=== PATIENT | male | born 1950 | race Caucasian/White ===

== ENCOUNTER → 2017-05-14 | Outpatient (CLI) | payer MEDICARE ==
[~2017-05-14] MED LIST: AMLO5TAB2 PO; ASPI-496 PO; ATOR80TA PO; LINA290C PO; LORA2TAB PO; METO-99 PO; OMEP-110 PO; TEMA15CA PO; TRIA1TAB5 PO
== END | disposition home or self-care (01) ==
LOC: STAR 15:13
PROVIDERS: ATTEND Internal Medicine
DX: Z01.818 Encounter for other preprocedural examination (principal); R94.31 Abnormal electrocardiogram [ECG] [EKG]; K22.711 Barrett's esophagus with high grade dysplasia; K22.70 Barrett's esophagus without dysplasia; I10 Essential (primary) hypertension; E78.5 Hyperlipidemia, unspecified; F41.9 Anxiety disorder, unspecified; F32.9 Major depressive disorder, single episode, unspecified; E66.9 Obesity, unspecified; K59.00 Constipation, unspecified; R63.1 Polydipsia; D12.0 Benign neoplasm of cecum; F52.32 Male orgasmic disorder
CPT/HCPCS: 93005

== ENCOUNTER 2017-05-20 08:18 | Day surgery (SDC) | payer MEDICARE ==
[2017-05-15 07:43] VITALS: BP 173/90
[~2017-05-20] VITALS: Ht 167.6 cm; Wt 111.0 kg
[2017-05-20] MEDS ORDERED: LACTATED RINGERS 1,000 ML IV SCH (09:12)
[2017-05-20 09:15] VITALS: BP 173/90
[2017-05-20] MEDS ORDERED: LIDOCAINE 1%, 2ML SQ PRN (09:30)
[2017-05-20] MEDS ORDERED: FENTANYL PF 100 MCG/2ML ONE (10:49)
[2017-05-20] MEDS ORDERED: ACETAMINOPHEN 325 MG TABLET PO PRN (11:00)
[2017-05-20] MEDS ORDERED: ALBUTEROL SULFATE 2.5 MG/3 ML NPPB PRN (11:00)
[2017-05-20] MEDS ORDERED: FENTANYL PF 100 MCG/2ML IV PRN (11:00)
[2017-05-20] MEDS ORDERED: EPHEDRINE 50 MG/ML, 1ML IVPush PRN (11:00)
[2017-05-20] MEDS ORDERED: LABETALOL 5MG/ML, 20ML IV PRN (11:00)
[2017-05-20] MEDS ORDERED: HYDROcodone/APAP 7.5-325MG/15ML UDC PO PRN (11:00)
[2017-05-20] MEDS ORDERED: ONDANSETRON 2MG/ML, 2ML IVPush PRN (11:00)
[2017-05-20] MEDS ORDERED: METOPROLOL 1 MG/ML, 5ML IV PRN (11:00)
[2017-05-20] MEDS ORDERED: hydrALAzine 20 MG/ML, 1ML IV PRN (11:00)
[2017-05-20] MEDS ORDERED: SUCCINYLCHOLINE 20 MG/ML, 10ML ONE (11:20)
[2017-05-20] MEDS ORDERED: ROCURONIUM 10 MG/ML ONE (11:20)
[2017-05-20] MEDS ORDERED: NEOSTIGMINE 1 MG/ML, 10ML ONE (11:20)
[2017-05-20] MEDS ORDERED: PROPOFOL 10 MG/ML, 20ML ONE (11:20)
[2017-05-20] MEDS ORDERED: GLYCOPYRROLATE 0.2MG/1ML ONE (11:20)
[2017-05-20] MEDS ORDERED: ONDANSETRON 2MG/ML, 2ML ONE (11:20)
[2017-05-20] MEDS ORDERED: hydrALAzine 20 MG/ML, 1ML ONE (12:01)
[2017-05-20] MEDS ORDERED: HYDROcodone/APAP 7.5-325MG/15ML UDC PO ONE (13:00)
== END 2017-05-20 13:30 ==
LOC: OUT 08:18
PROVIDERS: ATTEND Internal Medicine
DX: K22.711 Barrett's esophagus with high grade dysplasia (principal); I10 Essential (primary) hypertension; K21.9 Gastro-esophageal reflux disease without esophagitis
CPT/HCPCS: 43239; 43270; 88305; J0330; J0360; J2405; J2704; J2710; J3010; J3490; J7120

== ENCOUNTER → 2017-10-28 | Outpatient (CLI) | payer MEDICARE ==
[~2017-10-28] MED LIST changes: +FENTANYL PF 100 MCG/2ML ONE; +HYDR-3240 PO; +METO50TA82 PO; +MIDAZOLAM 1 MG/ML, 5ML ONE; +ONDA4TAB13 SL; +POLY17PO5 PO; +TRAM50TA2 PO
== END | disposition home or self-care (01) ==
LOC: RAD 13:35
PROVIDERS: ATTEND Nurse Practitioner
DX: M47.893 Other spondylosis, cervicothoracic region (principal); M47.894 Other spondylosis, thoracic region
CPT/HCPCS: 72146; 99156; 99157; J2250; J3010